=== PATIENT | male | born 1975 | race Caucasian/White ===

== ENCOUNTER → 2017-07-18 | Outpatient (CLI) | payer BC | LOC: GMAB 10:34 | PROVIDERS: ATTEND Family Medicine | DX: Z00.00 Encounter for general adult medical examination without abnormal findings (principal) ==

== ENCOUNTER → 2018-11-21 | Outpatient (CLI) | payer BC ==
--- NOTE | 2018-11-21 14:01 | CT ---
EXAM DESCRIPTION: Head CLINICAL HISTORY: Chronic headache disorder COMPARISON: None available TECHNIQUE: Noncontrast head CT was performed with routine protocol. FINDINGS: Normal adam-white matter differentiation. Ventricles and sulci are normal for age. No high density hemorrhage, focal edema or shift of the midline. No sulcal effacement. Normal orbital contents. Basilar cisterns appear clear. Intact calvarium with no fracture or lytic lesion. Normal aeration of tympanic cavities and mastoid air cells. No fluid levels in the paranasal sinuses. Skull base appears intact. Symmetrical internal auditory canals. IMPRESSION: No acute intracranial pathologic process. This exam was performed according to our departmental dose-optimization program, which includes automated exposure control, adjustment of the mA and/or kV according to patient size and/or use of iterative reconstruction technique. Total DLP equals 859.97 mGycm. Electronically signed by: Ernie Chaparro MD 11/21/2018 1:59 PM CDT
== END ==
LOC: CT 08:15
PROVIDERS: ATTEND Nurse Practitioner Family
DX: G43.719 Chronic migraine without aura, intractable, without status migrainosus (principal)

== ENCOUNTER → 2019-03-10 | Outpatient (CLI) | payer BC | LOC: GMAE 14:10 | PROVIDERS: ATTEND Family Medicine | DX: Z00.00 Encounter for general adult medical examination without abnormal findings (principal) ==

== ENCOUNTER → 2020-02-25 | Outpatient (CLI) | payer BC | LOC: GMAE 10:39 | PROVIDERS: ATTEND Family Medicine | DX: Z00.00 Encounter for general adult medical examination without abnormal findings (principal) ==

== ENCOUNTER → 2020-02-26 | Outpatient (CLI) | payer BC ==
--- NOTE | 2020-02-28 16:56 | US ---
EXAM DESCRIPTION: Liver: ULTRASOUND. CLINICAL HISTORY: ABNORMAL LIVER FUNCTION STUDIES COMPARISON: None. TECHNIQUE: Transabdominal scannin-dimensional and Doppler modes. FINDINGS: Gallbladder: normal size, shape, echogenicity; no intraluminal stones or sludge. No fluid around the gallbladder. No wall thickening. 2.7 mm. Non-tender with transducer pressure. Common bile duct: caliber 4.6 mm within normal limits. Liver: Heterogeneously increased echogenicity; contour liver capsule smooth where seen. No fluid around the liver. Intrahepatic biliary ducts normal caliber. Doppler hepatopedal flow portal vein. Normal caliber 11 mm. Long axis right lobe 15 cm Pancreas: normal size and echogenicity. Duct not seen. Right kidney: long axis measures 9.9 cm. Volume 124.2 ml. Echogenicity normal cortex. Cortical thickness 10 mm. No echogenic stones; no hydronephrosis. Aorta proximal: Proximal abdominal aorta 1.6 cm normal caliber. IMPRESSION: 1. Gallbladder and common bile duct are unremarkable. No tenderness with transducer pressure. No ascites. 2. Steatosis of the liver with normal size and physiologic vascularity. Smooth capsule and no ascites. Pancreas is negative. 3. Thinning cortex of the right kidney but otherwise unremarkable. Normal caliber of the proximal abdominal aorta. Electronically signed by: Jamshid Rob MD 02/28/2020 4:54 PM CDT
== END ==
LOC: US 14:29
PROVIDERS: ATTEND Family Medicine
DX: R94.5 Abnormal results of liver function studies (principal); K76.0 Fatty (change of) liver, not elsewhere classified; N28.9 Disorder of kidney and ureter, unspecified

== ENCOUNTER → 2020-03-15 | Outpatient (CLI) | payer BC | LOC: YCFC.O 10:14 | PROVIDERS: ATTEND Nurse Practitioner Family | DX: Z20.828 Contact with and (suspected) exposure to other viral communicable diseases (principal) ==

== ENCOUNTER → 2020-06-10 | Outpatient (CLI) | payer BC | LOC: GMAE 12:34 | PROVIDERS: ATTEND Family Medicine | DX: R94.5 Abnormal results of liver function studies (principal); D50.9 Iron deficiency anemia, unspecified ==